=== PATIENT | male | born 1980 | race Caucasian/White ===

== ENCOUNTER 2021-01-29 12:44 | Emergency (ER) | payer SELFPAY ==
[~2021-01-29] VITALS: Ht 175.3 cm; Wt 83.0 kg
[2021-01-29 13:04] VITALS: BP 138/76
== END 2021-01-29 16:41 | disposition left against medical advice (07) ==
LOC: ER 12:44
DX: Z53.21 Procedure and treatment not carried out due to patient leaving prior to being seen by health care provider (principal); R12 Heartburn; R07.9 Chest pain, unspecified
CPT/HCPCS: 93005